=== PATIENT | female | born 1975 | race Caucasian/White ===

== ENCOUNTER 2016-10-21 19:16 | Emergency (ER) | payer OTHER ==
[~2016-10-21 19:16] MED LIST: /PANT40TA PO; ASPI325T5 PO; ATOR1TAB18 PO; EFFI10TA4 PO; FURO20TA2 PO; LISI2.5T PO; METO50TA2 PO; PLAV75TA PO; TRAM50TA2 PO; [UNRECOGNIZED DRUG - CODE] PO
[2016-10-21] MEDS ORDERED: KETOROLAC 30 MG/ML VIAL (J1885) As Ordered ONE (20:45)
--- NOTE | 2016-10-21 21:32 | EDDOCDS ---
Nurse's Notes [facility] Name: Gladis De La Paz Age: 41 yrs Sex: Female : 1975 Arrival Date: 10/21/2016 Time: 19:16 Bed 10 Private MD: Ivett Du C Diagnosis: Strain of muscle and tendon of front wall of thorax Presentation: 10/21 19:22 Presenting complaint: Patient states: reports lifting heavy furniture two days ago, ead reports "chest wall pain" since. denies sob. Adult Sepsis Screening: The patient does not have new or worsening altered mentation. Patient's respiratory rate is less than 22. Systolic blood pressure is greater than 100. Patient has a qSOFA score of 0- Negative Sepsis Screen. Suicide/Homicide risk assessment- the patient denies having any suicidal and/or homicidal ideations and does not present with any other emotional, behavioral or mental health complaints. Status: Patient is not a enrollment services vice president or dependent. Transition of care: patient was not received from another setting of care. 19:22 Method Of Arrival: Walkin/Carried/Asstd ead 19:28 Acuity: RENALDO Level 3 ead Triage Assessment: 19:25 General: Appears in no apparent distress, Behavior is appropriate for age, cooperative. ead Pain: Location: anterior aspect of right upper chest and anterior aspect of left upper chest Pain currently is 4 out of 10 on a pain scale. HIV screening NA for this visit Offered previously. Neurological: No deficits noted. Respiratory: Airway is patent Respiratory effort is even, unlabored, Denies shortness of breath. Derm: Skin is pink, warm & dry. Musculoskeletal: Reports pain in anterior aspect of right upper chest and anterior aspect of left upper chest. 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 aspirin 81 mg Oral TbEC once daily (Last dose: 10/21/2016) 2. Lasix 20 mg Oral tab 1 tab 2 times per day 3. atorvastatin 80 mg oral tab 1 tab nightly 4. metoprolol tartrate 50 mg Oral tab nightly 5. lisinopril 2.5 mg Oral tab 1 tab once daily 6. Zyrtec 10 mg Oral tab 1 tab once daily 7. Protonix 20 mg Oral tab 1 tab 2 times per day 8. potassium chloride 10 mEq Oral cpER 1 cap twice a day 9. Singulair 10 mg oral tab once daily - PMHx: Hypertension; Cardiac arrest; Allergies, Seasonal; Hypercholesterolemia; GERD; - PSHx: Tubal ligation; Cardiac stents; Tonsillectomy; - Social history: Smoking status: Patient uses tobacco products, current every day smoker. No barriers to communication noted, The patient speaks fluent Bengali, Speaks appropriately for age. - Family history: Not pertinent. - : The pt / caregiver states he / she is not on anticoagulants. Home medication list is obtained from the patient, [employer] import data. - Exposure Risk Screening:: None identified. Screenin:12 Screening information is obtained from the patient. Fall risk: No risks identified. cf2 Assistance ADL's: requires no assistance with activities of daily living. Abuse/DV Screen: The patient / caregiver reports he/she is: not in a situation that causes fear, pain or injury. Nutritional screening: No deficits noted. Advance Directives: Further advance directive information is declined. home support is adequate. Assessment: 21:12 General: Appears in no apparent distress, comfortable, Behavior is appropriate for age, cf2 cooperative. Pain: Denies pain. Neurological: No deficits noted. EENT: No deficits noted. Cardiovascular: No deficits noted. Respiratory: No deficits noted. GI: No deficits noted. : No deficits noted. Derm: No deficits noted. Musculoskeletal: No deficits noted. Injury Description: No known injury. Vital Signs: 19:17 BP 128 / 88; Pulse 85; Resp 18 S; Temp 97.3(O); Pulse Ox 100% on R/A; Weight 90.72 kg dd6 (R); Height 5 ft. 1 in. (154.94 cm) (R); Pain 4/10; 20:53 Pulse 80 MON; Resp 17; Temp 97.6(T); Pulse Ox 97% ; mb9 21:26 BP 123 / 76 (auto/); mb9 19:17 Body Mass Index 37.79 (90.72 kg, 154.94 cm) dd6 Vitals: 19:17 Log In Time: October 21, 2016 at 19:15. dd6 ED Course: 19:17 Patient visited by Jason Villatoro PCA. dd6 19:17 Ivett Du is Private Physician. dd6 19:17 Patient moved to Waiting dd6 19:18 Patient moved to Pre RCE dd6 19:23 Triage Initiated ead 19:28 Patient moved to 10 ead 19:34 Kathy Ely,MIHIR is Primary Nurse. cf2 19:34 Patient visited by Kathy Ely RN. cf2 19:35 front desk monitor on. Pulse ox on. NIBP on. ead 19:37 Faisal Nicolas DO is Attending Physician. cs11 19:38 Patient visited by Faisal Nicolas DO. cs11 19:40 Patient visited by Zunilda Menendez, Machinist Helper Marine. jlm 19:40 EKG done. (by ED staff). Reviewed by Faisal Nicolas DO. jlm 19:42 Patient has correct armband on for positive identification. Placed in gown. Bed in low ead position. Call light in reach. Side rails up X 1. Adult w/ patient. 19:45 [facility] Payment Agreement was scanned into [employer] and attached to record. dm19 20:14 Patient visited by Kathy Ely RN. cf2 20:55 Patient visited by Zunilda Menendez, Machinist Helper Marine. jlm 20:55 Assisted to bathroom. jlm 21:12 The patient / caregiver is instructed regarding the plan of care and ED course. cf2 21:12 No IV's were initiated during this patient's visit. No procedures done that require cf2 assistance. 21:13 Ivett Du is Referral Physician. cs11 Administered Medications: 20:53 Drug: ketorolac 60 mg [ketorolac 30 mg/mL (1 mL) injection solution (2 mL)] Route: IM; mb9 Site: left gluteus; Order Results: There are currently no results for this order. Outcome: 20:53 Discharge Assessment: Patient awake, alert and oriented x 3. No cognitive and/or mb9 functional deficits noted. Patient verbalized understanding of disposition instructions. patient administered narcotics - no. The following High Risk Discharge criteria are identified: None. Discharged to home ambulatory. Condition: good Condition: stable Condition: improved. Discharge instructions given to patient, Instructed on discharge instructions, follow up and referral plans. medication usage, Demonstrated understanding of instructions, medications, Pt was receptive of discharge instructions/ teaching. Prescriptions given X 1. No special radiology studies were completed. Property :Personal belongings accompany Pt. 21:13 Discharge ordered by Provider. cs11 21:31 Patient left the ED. mb9 Signatures: Jason Villatoro, KHALIF FIRE PROTECTION DESIGNER dd6 Faisal Nicolas, DO cs11 Kori Flanagan,RN RN Zunilda Justice, Machinist Helper Marine Unit Harjeet Barry RN RN mb9 Kathy Ely RN RN 2 Betsy Mancia dm19 Corrections: (The following items were deleted from the chart) 19:28 19:22 Acuity: RNEALDO Level 4 ead ealuis MTDD
--- NOTE | 2016-10-21 21:32 | EDDOCDS ---
Physician Documentation [facility] Name: Gladis De La Paz Age: 41 yrs Sex: Female : 1975 Arrival Date: 10/21/2016 Time: 19:16 Bed 10 Private MD: Ivett Du C Disposition: 10/21/16 21:13 Discharged to Home/Self Care. Impression: Strain of muscle and tendon of front wall of thorax. - Condition is Stable. - Prescriptions for ketorolac 10 mg Oral Tablet - take 1 tablet by ORAL route 3 times per day As needed MDD- 30mg. Up to 5 days total use.; 15 tablet. - Medication Reconciliation, Local Pharmacy Hours form. - Follow up: Ivett Du; When: Call to arrange an appointment; Reason: Recheck today's complaints. - Problem is new. - Symptoms have improved. Historical: - Allergies: Amoxicillin (difficulty breathing); - Home Meds: 1. aspirin 81 mg Oral TbEC once daily (Last dose: 10/21/2016) 2. Lasix 20 mg Oral tab 1 tab 2 times per day 3. atorvastatin 80 mg oral tab 1 tab nightly 4. metoprolol tartrate 50 mg Oral tab nightly 5. lisinopril 2.5 mg Oral tab 1 tab once daily 6. Zyrtec 10 mg Oral tab 1 tab once daily 7. Protonix 20 mg Oral tab 1 tab 2 times per day 8. potassium chloride 10 mEq Oral cpER 1 cap twice a day 9. Singulair 10 mg oral tab once daily - PMHx: Hypertension; Cardiac arrest; Allergies, Seasonal; Hypercholesterolemia; GERD; - PSHx: Tubal ligation; Cardiac stents; Tonsillectomy; - Social history: Smoking status: Patient uses tobacco products, current every day smoker. No barriers to communication noted, The patient speaks fluent Niuean, Speaks appropriately for age. - Family history: Not pertinent. - : The pt / caregiver states he / she is not on anticoagulants. Home medication list is obtained from the patient, [employer] import data. - Exposure Risk Screening:: None identified. 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 1 in. (154.94 cm) (R); Pain 4/10; 20:53 Pulse 80 MON; Resp 17; Temp 97.6(T); Pulse Ox 97% ; mb9 21:26 BP 123 / 76 (auto/); mb9 19:17 Body Mass Index 37.79 (90.72 kg, 154.94 cm) dd6 MDM: 19:44 Financial registration complete. dm19 19:45 [facility] Payment Agreement was scanned into [employer] and attached to record. dm19 20:23 ketorolac 60 mg IM once ordered. cs11 20:34 ECG WITH READING ER PHYS+CARDIAG ordered. EDMS 20:36 Chest, 1 View Ordered. EDMS Administered Medications: 20:53 Drug: ketorolac 60 mg [ketorolac 30 mg/mL (1 mL) injection solution (2 mL)] Route: IM; mb9 Site: left gluteus; Signatures: Dispatcher [employer] EDMS Faisal Nicolas, DO cs11 Kori Flanagan,RN RN Harjeet Torres RN RN mb9 Kathy Ely,RN RN cf2 Betsy Mancia dm19 The chart was reviewed and I authenticate all verbal orders and agree with the evaluation and treatment provided.Corrections: (The following items were deleted from the chart) 21:06 20:34 Chest, 1 view ordered. EDMS EDMS Attachments: 19:45 [facility] Payment Agreement dm19 MTDD
--- NOTE | 2016-10-21 21:46 | REP ---
Clinical: Chest pain . Comparison: 03/05/2016 . Findings: The mediastinum and cardiac silhouette are stable and within normal limits for portable technique. The lung jones are clear without acute consolidation, effusion, or pneumothorax. Skeletal structures are intact. Impression: Normal portable chest x-ray Signed by [place] Prasad MD 10/21/2016 09:38 P
--- NOTE | 2016-10-22 12:05 | ECGEPIP ---
Stationary ECG Study [facility] - ED Test Date: 2016-10-21 Pat Name: TANO THOMSON Department: Room: - Gender: F Sampler Ovens: neel : 1975 Requested By: MAINOR Islas Order Number: [id number] Reading MD: Kerri Anne Measurements Intervals [place] Rate: 78 P: 19 [place]: 143 QRS: 57 QRSD: 90 T: 52 QT: 368 QTc: 421 Interpretive Statements SINUS RHYTHM ANTERIOR MYOCARDIAL INFARCTION, PROBABLY OLD NSTTW ABNORMALITY Electronically Signed On 10-22-2016 12:05:16 EST by Kerri Anne
--- NOTE | 2016-10-23 22:33 | EDDOCDS ---
Physician Documentation [facility] Name: Gladis De La Paz Age: 41 yrs Sex: Female : 1975 Arrival Date: 10/21/2016 Time: 19:16 Bed 10 Private MD: Ivett Du C Disposition: 10/21/16 21:13 Discharged to Home/Self Care. Impression: Strain of muscle and tendon of front wall of thorax. - Condition is Stable. - Prescriptions for ketorolac 10 mg Oral Tablet - take 1 tablet by ORAL route 3 times per day As needed MDD- 30mg. Up to 5 days total use.; 15 tablet. - Medication Reconciliation, Local Pharmacy Hours form. - Follow up: Ivett Du; When: Call to arrange an appointment; Reason: Recheck today's complaints. - Problem is new. - Symptoms have improved. Historical: - Allergies: Amoxicillin (difficulty breathing); - Home Meds: 1. aspirin 81 mg Oral TbEC once daily (Last dose: 10/21/2016) 2. Lasix 20 mg Oral tab 1 tab 2 times per day 3. atorvastatin 80 mg oral tab 1 tab nightly 4. metoprolol tartrate 50 mg Oral tab nightly 5. lisinopril 2.5 mg Oral tab 1 tab once daily 6. Zyrtec 10 mg Oral tab 1 tab once daily 7. Protonix 20 mg Oral tab 1 tab 2 times per day 8. potassium chloride 10 mEq Oral cpER 1 cap twice a day 9. Singulair 10 mg oral tab once daily - PMHx: Hypertension; Cardiac arrest; Allergies, Seasonal; Hypercholesterolemia; GERD; - PSHx: Tubal ligation; Cardiac stents; Tonsillectomy; - Social history: Smoking status: Patient uses tobacco products, current every day smoker. No barriers to communication noted, The patient speaks fluent Emirati, Speaks appropriately for age. - Family history: Not pertinent. - : The pt / caregiver states he / she is not on anticoagulants. Home medication list is obtained from the patient, [employer] import data. - Exposure Risk Screening:: None identified. 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 1 in. (154.94 cm) (R); Pain 4/10; 20:53 Pulse 80 MON; Resp 17; Temp 97.6(T); Pulse Ox 97% ; mb9 21:26 BP 123 / 76 (auto/); mb9 19:17 Body Mass Index 37.79 (90.72 kg, 154.94 cm) dd6 MDM: 19:44 Financial registration complete. dm19 19:45 [facility] Payment Agreement was scanned into [employer] and attached to record. dm19 20:23 ketorolac 60 mg IM once ordered. cs11 20:34 ECG WITH READING ER PHYS+CARDIAG ordered. EDMS 20:36 Chest, 1 View Ordered. EDMS 10/23 08:15 T-Sheet-- Draft Copy was scanned into [employer] and attached to record. gb Administered Medications: 10/21 20:53 Drug: ketorolac 60 mg [ketorolac 30 mg/mL (1 mL) injection solution (2 mL)] Route: IM; mb9 Site: left gluteus; Signatures: Dispatcher [employer] EDMS Amy Zarco, Reg Reg gb Faisal Nicolas, DO cs11 Kori FlanaganRN RN Harjeet Torres,RN RN mb9 Kathy Ely,RN RN cf2 Betsy Mancia dm19 The chart was reviewed and I authenticate all verbal orders and agree with the evaluation and treatment provided.Corrections: (The following items were deleted from the chart) : 20:34 Chest, 1 view ordered. EDMS EDMS Attachments: 19:45 [facility] Payment Agreement dm19 10/23 08:15 T-Sheet-- Draft Copy gb Chart Complete MTDD
--- NOTE | 2016-10-23 22:33 | EDDOCDS ---
Physician Documentation [facility] Name: Gladis De La Paz Age: 41 yrs Sex: Female : 1975 Arrival Date: 10/21/2016 Time: 19:16 Bed 10 Private MD: Ivett Du C Disposition: 10/21/16 21:13 Discharged to Home/Self Care. Impression: Strain of muscle and tendon of front wall of thorax. - Condition is Stable. - Prescriptions for ketorolac 10 mg Oral Tablet - take 1 tablet by ORAL route 3 times per day As needed MDD- 30mg. Up to 5 days total use.; 15 tablet. - Medication Reconciliation, Local Pharmacy Hours form. - Follow up: Ivett Du; When: Call to arrange an appointment; Reason: Recheck today's complaints. - Problem is new. - Symptoms have improved. Historical: - Allergies: Amoxicillin (difficulty breathing); - Home Meds: 1. aspirin 81 mg Oral TbEC once daily (Last dose: 10/21/2016) 2. Lasix 20 mg Oral tab 1 tab 2 times per day 3. atorvastatin 80 mg oral tab 1 tab nightly 4. metoprolol tartrate 50 mg Oral tab nightly 5. lisinopril 2.5 mg Oral tab 1 tab once daily 6. Zyrtec 10 mg Oral tab 1 tab once daily 7. Protonix 20 mg Oral tab 1 tab 2 times per day 8. potassium chloride 10 mEq Oral cpER 1 cap twice a day 9. Singulair 10 mg oral tab once daily - PMHx: Hypertension; Cardiac arrest; Allergies, Seasonal; Hypercholesterolemia; GERD; - PSHx: Tubal ligation; Cardiac stents; Tonsillectomy; - Social history: Smoking status: Patient uses tobacco products, current every day smoker. No barriers to communication noted, The patient speaks fluent Luxembourger, Speaks appropriately for age. - Family history: Not pertinent. - : The pt / caregiver states he / she is not on anticoagulants. Home medication list is obtained from the patient, [employer] import data. - Exposure Risk Screening:: None identified. 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 1 in. (154.94 cm) (R); Pain 4/10; 20:53 Pulse 80 MON; Resp 17; Temp 97.6(T); Pulse Ox 97% ; mb9 21:26 BP 123 / 76 (auto/); mb9 19:17 Body Mass Index 37.79 (90.72 kg, 154.94 cm) dd6 MDM: 19:44 Financial registration complete. dm19 19:45 [facility] Payment Agreement was scanned into [employer] and attached to record. dm19 20:23 ketorolac 60 mg IM once ordered. cs11 20:34 ECG WITH READING ER PHYS+CARDIAG ordered. EDMS 20:36 Chest, 1 View Ordered. EDMS 10/23 08:15 T-Sheet-- Draft Copy was scanned into [employer] and attached to record. gb Administered Medications: 10/21 20:53 Drug: ketorolac 60 mg [ketorolac 30 mg/mL (1 mL) injection solution (2 mL)] Route: IM; mb9 Site: left gluteus; Signatures: Dispatcher [employer] EDMS Amy Zarco, Reg Reg gb Faisal Nicolas, DO cs11 Kori FlanaganRN RN Harjeet Torres,RN RN mb9 Kathy Ely,RN RN cf2 Betsy Mancia dm19 The chart was reviewed and I authenticate all verbal orders and agree with the evaluation and treatment provided.Corrections: (The following items were deleted from the chart) : 20:34 Chest, 1 view ordered. EDMS EDMS Attachments: 19:45 [facility] Payment Agreement dm19 10/23 08:15 T-Sheet-- Draft Copy gb Chart Complete MTDD
--- NOTE | 2016-10-23 22:33 | EDDOCDS ---
Nurse's Notes [facility] Name: Tano Thomson Age: 41 yrs Sex: Female : 1975 Arrival Date: 10/21/2016 Time: 19:16 Bed 10 Private MD: Ivett Du C Diagnosis: Strain of muscle and tendon of front wall of thorax Presentation: 10/21 19:22 Presenting complaint: Patient states: reports lifting heavy furniture two days ago, ead reports "chest wall pain" since. denies sob. Adult Sepsis Screening: The patient does not have new or worsening altered mentation. Patient's respiratory rate is less than 22. Systolic blood pressure is greater than 100. Patient has a qSOFA score of 0- Negative Sepsis Screen. Suicide/Homicide risk assessment- the patient denies having any suicidal and/or homicidal ideations and does not present with any other emotional, behavioral or mental health complaints. Status: Patient is not a repair servicer or dependent. Transition of care: patient was not received from another setting of care. 19:22 Method Of Arrival: Walkin/Carried/Asstd ead 19:28 Acuity: RENALDO Level 3 ead Triage Assessment: 19:25 General: Appears in no apparent distress, Behavior is appropriate for age, cooperative. ead Pain: Location: anterior aspect of right upper chest and anterior aspect of left upper chest Pain currently is 4 out of 10 on a pain scale. HIV screening NA for this visit Offered previously. Neurological: No deficits noted. Respiratory: Airway is patent Respiratory effort is even, unlabored, Denies shortness of breath. Derm: Skin is pink, warm & dry. Musculoskeletal: Reports pain in anterior aspect of right upper chest and anterior aspect of left upper chest. 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 aspirin 81 mg Oral TbEC once daily (Last dose: 10/21/2016) 2. Lasix 20 mg Oral tab 1 tab 2 times per day 3. atorvastatin 80 mg oral tab 1 tab nightly 4. metoprolol tartrate 50 mg Oral tab nightly 5. lisinopril 2.5 mg Oral tab 1 tab once daily 6. Zyrtec 10 mg Oral tab 1 tab once daily 7. Protonix 20 mg Oral tab 1 tab 2 times per day 8. potassium chloride 10 mEq Oral cpER 1 cap twice a day 9. Singulair 10 mg oral tab once daily - PMHx: Hypertension; Cardiac arrest; Allergies, Seasonal; Hypercholesterolemia; GERD; - PSHx: Tubal ligation; Cardiac stents; Tonsillectomy; - Social history: Smoking status: Patient uses tobacco products, current every day smoker. No barriers to communication noted, The patient speaks fluent Spanish, Speaks appropriately for age. - Family history: Not pertinent. - : The pt / caregiver states he / she is not on anticoagulants. Home medication list is obtained from the patient, [employer] import data. - Exposure Risk Screening:: None identified. Screenin:12 Screening information is obtained from the patient. Fall risk: No risks identified. cf2 Assistance ADL's: requires no assistance with activities of daily living. Abuse/DV Screen: The patient / caregiver reports he/she is: not in a situation that causes fear, pain or injury. Nutritional screening: No deficits noted. Advance Directives: Further advance directive information is declined. home support is adequate. Assessment: 21:12 General: Appears in no apparent distress, comfortable, Behavior is appropriate for age, cf2 cooperative. Pain: Denies pain. Neurological: No deficits noted. EENT: No deficits noted. Cardiovascular: No deficits noted. Respiratory: No deficits noted. GI: No deficits noted. : No deficits noted. Derm: No deficits noted. Musculoskeletal: No deficits noted. Injury Description: No known injury. Vital Signs: 19:17 BP 128 / 88; Pulse 85; Resp 18 S; Temp 97.3(O); Pulse Ox 100% on R/A; Weight 90.72 kg dd6 (R); Height 5 ft. 1 in. (154.94 cm) (R); Pain 4/10; 20:53 Pulse 80 MON; Resp 17; Temp 97.6(T); Pulse Ox 97% ; mb9 21:26 BP 123 / 76 (auto/); mb9 19:17 Body Mass Index 37.79 (90.72 kg, 154.94 cm) dd6 Vitals: 19:17 Log In Time: October 21, 2016 at 19:15. dd6 ED Course: 19:17 Patient visited by Jason Villatoro PCA. dd6 19:17 Ivett Du is Private Physician. dd6 19:17 Patient moved to Waiting dd6 19:18 Patient moved to Pre RCE dd6 19:23 Triage Initiated ead 19:28 Patient moved to 10 ead 19:34 Kathy Ely,MIHIR is Primary Nurse. cf2 19:34 Patient visited by Kathy Ely RN. cf2 19:35 linen checker on. Pulse ox on. NIBP on. ead 19:37 Faisal Nicolas DO is Attending Physician. cs11 19:38 Patient visited by Faisal Nicolas DO. cs11 19:40 Patient visited by Zunilda Menendez, School Speech Language Pathologist. jlm 19:40 EKG done. (by ED staff). Reviewed by Faisal Nicolas DO. jlm 19:42 Patient has correct armband on for positive identification. Placed in gown. Bed in low ead position. Call light in reach. Side rails up X 1. Adult w/ patient. 19:45 [facility] Payment Agreement was scanned into [employer] and attached to record. dm19 20:14 Patient visited by Kathy Ely RN. cf2 20:55 Patient visited by Zunilda Menendez, School Speech Language Pathologist. jlm 20:55 Assisted to bathroom. jlm 21:12 The patient / caregiver is instructed regarding the plan of care and ED course. cf2 21:12 No IV's were initiated during this patient's visit. No procedures done that require cf2 assistance. 21:13 Ivett Du is Referral Physician. cs11 22:32 Chest, 1 View Returned. EDMS 10/22 12:30 EKG-ADULT Returned. EDMS 10/23 08:15 T-Sheet-- Draft Copy was scanned into [employer] and attached to record. gb Administered Medications: 10/21 20:53 Drug: ketorolac 60 mg [ketorolac 30 mg/mL (1 mL) injection solution (2 mL)] Route: IM; mb9 Site: left gluteus; Order Results: Radiology Order: EKG-ADULT Test: EKG-ADULT REASON FOR EXAMINATION: Chest Pain; Stationary ECG Study; [facility] - ED; ; Test Date: 2016-10-21; Pat Name: TANO THOMSON Department:; Room: -; Gender: F Social Media Specialist: neel; : 1975 Requested By: MAINOR Islas; Order Number: [id number] Reading MD: Kerri Anne; Measurements; Intervals [place]; Rate: 78 P: 19; GA: 143 QRS: 57; QRSD: 90 T: 52; QT: 368; QTc: 421; Interpretive Statements; SINUS RHYTHM; ANTERIOR MYOCARDIAL INFARCTION, PROBABLY OLD; NSTTW ABNORMALITY; Electronically Signed On 10-22-2016 12:05:16 EST by Kerri Anne; Radiology Order: Chest, 1 View Test: Chest, 1 View REASON FOR EXAMINATION: Chest Pain; Clinical: Chest pain .; ; Comparison: 03/05/2016 .; ; Findings:; The mediastinum and cardiac silhouette are stable and within normal limits for; portable technique. The lung jones are clear without acute consolidation,; effusion, or pneumothorax. Skeletal structures are intact.; ; Impression:; Normal portable chest x-ray; ; ; Signed by; Los Prasad MD 10/21/2016 09:38 P; Outcome: 20:53 Discharge Assessment: Patient awake, alert and oriented x 3. No cognitive and/or mb9 functional deficits noted. Patient verbalized understanding of disposition instructions. patient administered narcotics - no. The following High Risk Discharge criteria are identified: None. Discharged to home ambulatory. Condition: good Condition: stable Condition: improved. Discharge instructions given to patient, Instructed on discharge instructions, follow up and referral plans. medication usage, Demonstrated understanding of instructions, medications, Pt was receptive of discharge instructions/ teaching. Prescriptions given X 1. No special radiology studies were completed. Property :Personal belongings accompany Pt. 21:13 Discharge ordered by Provider. cs11 21:31 Patient left the ED. mb9 Signatures: Dispatcher [employer] EDMS Amy Zarco, Reg Reg gb Jason Villatoro, STRETCHER OPERATOR STRETCHER OPERATOR dd6 Faisal Nicolas DO DO cs11 Kori Flanagan,RN RN Zunilda Justice, School Speech Language Pathologist Unit Harjeet TomRN RN mb9 Kathy Ely,RN RN cf2 Betsy Mancia dm19 Corrections: (The following items were deleted from the chart) 19:28 19:22 Acuity: RENALDO Level 4 ead ead Chart Complete MTDD
--- NOTE | 2016-10-25 13:47 | EDDOCDS ---
Physician Documentation Name: Gladis De La Paz Age: 41 yrs Sex: Female : 1975 Arrival Date: 10/21/2016 Time: 19:16 Bed 10 Private MD: Ivett Du C Disposition: 10/21/16 21:13 Discharged to Home/Self Care. Impression: Strain of muscle and tendon of front wall of thorax. - Condition is Stable. - Prescriptions for ketorolac 10 mg Oral Tablet - take 1 tablet by ORAL route 3 times per day As needed MDD- 30mg. Up to 5 days total use.; 15 tablet. - Medication Reconciliation, Local Pharmacy Hours form. - Follow up: Ivett Du; When: Call to arrange an appointment; Reason: Recheck today's complaints. - Problem is new. - Symptoms have improved. Historical: - Allergies: Amoxicillin (difficulty breathing); - Home Meds: 1. aspirin 81 mg Oral TbEC once daily (Last dose: 10/21/2016) 2. Lasix 20 mg Oral tab 1 tab 2 times per day 3. atorvastatin 80 mg oral tab 1 tab nightly 4. metoprolol tartrate 50 mg Oral tab nightly 5. lisinopril 2.5 mg Oral tab 1 tab once daily 6. Zyrtec 10 mg Oral tab 1 tab once daily 7. Protonix 20 mg Oral tab 1 tab 2 times per day 8. potassium chloride 10 mEq Oral cpER 1 cap twice a day 9. Singulair 10 mg oral tab once daily - PMHx: Hypertension; Cardiac arrest; Allergies, Seasonal; Hypercholesterolemia; GERD; - PSHx: Tubal ligation; Cardiac stents; Tonsillectomy; - Social history: Smoking status: Patient uses tobacco products, current every day smoker. No barriers to communication noted, The patient speaks fluent Swedish, Speaks appropriately for age. - Family history: Not pertinent. - : The pt / caregiver states he / she is not on anticoagulants. Home medication list is obtained from the patient, [employer] import data. - Exposure Risk Screening:: None identified. 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 1 in. (154.94 cm) (R); Pain 4/10; 20:53 Pulse 80 MON; Resp 17; Temp 97.6(T); Pulse Ox 97% ; mb9 21:26 BP 123 / 76 (auto/); mb9 19:17 Body Mass Index 37.79 (90.72 kg, 154.94 cm) dd6 MDM: 19:44 Financial registration complete. dm19 19:45 [facility] Payment Agreement was scanned into [employer] and attached to record. dm19 20:23 ketorolac 60 mg IM once ordered. cs11 20:34 ECG WITH READING ER PHYS+CARDIAG ordered. EDMS 20:36 Chest, 1 View Ordered. EDMS 10/23 08:15 T-Sheet-- Draft Copy was scanned into [employer] and attached to record. gb Administered Medications: 10/21 20:53 Drug: ketorolac 60 mg [ketorolac 30 mg/mL (1 mL) injection solution (2 mL)] Route: IM; mb9 Site: left gluteus; Signatures: Dispatcher [employer] EDMS Amy Zarco, Reg Reg gb Faisal Nicolas, DO cs11 Kori FlanaganRN RN Harjeet Torres,RN RN mb9 Kathy Ely,RN RN cf2 Betsy Mancia dm19 The chart was reviewed and I authenticate all verbal orders and agree with the evaluation and treatment provided.Corrections: (The following items were deleted from the chart) : 20:34 Chest, 1 view ordered. EDMS EDMS Attachments: 19:45 [facility] Payment Agreement dm19 10/23 08:15 T-Sheet-- Draft Copy gb Chart Complete MTDD
--- NOTE | 2016-10-25 13:47 | EDDOCDS ---
Physician Documentation [facility] Name: Gladis De La Paz Age: 41 yrs Sex: Female : 1975 Arrival Date: 10/21/2016 Time: 19:16 Bed 10 Private MD: Ivett Du C Disposition: 10/21/16 21:13 Discharged to Home/Self Care. Impression: Strain of muscle and tendon of front wall of thorax. - Condition is Stable. - Prescriptions for ketorolac 10 mg Oral Tablet - take 1 tablet by ORAL route 3 times per day As needed MDD- 30mg. Up to 5 days total use.; 15 tablet. - Medication Reconciliation, Local Pharmacy Hours form. - Follow up: Ivett Du; When: Call to arrange an appointment; Reason: Recheck today's complaints. - Problem is new. - Symptoms have improved. Historical: - Allergies: Amoxicillin (difficulty breathing); - Home Meds: 1. aspirin 81 mg Oral TbEC once daily (Last dose: 10/21/2016) 2. Lasix 20 mg Oral tab 1 tab 2 times per day 3. atorvastatin 80 mg oral tab 1 tab nightly 4. metoprolol tartrate 50 mg Oral tab nightly 5. lisinopril 2.5 mg Oral tab 1 tab once daily 6. Zyrtec 10 mg Oral tab 1 tab once daily 7. Protonix 20 mg Oral tab 1 tab 2 times per day 8. potassium chloride 10 mEq Oral cpER 1 cap twice a day 9. Singulair 10 mg oral tab once daily - PMHx: Hypertension; Cardiac arrest; Allergies, Seasonal; Hypercholesterolemia; GERD; - PSHx: Tubal ligation; Cardiac stents; Tonsillectomy; - Social history: Smoking status: Patient uses tobacco products, current every day smoker. No barriers to communication noted, The patient speaks fluent Zambian, Speaks appropriately for age. - Family history: Not pertinent. - : The pt / caregiver states he / she is not on anticoagulants. Home medication list is obtained from the patient, [employer] import data. - Exposure Risk Screening:: None identified. 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 1 in. (154.94 cm) (R); Pain 4/10; 20:53 Pulse 80 MON; Resp 17; Temp 97.6(T); Pulse Ox 97% ; mb9 21:26 BP 123 / 76 (auto/); mb9 19:17 Body Mass Index 37.79 (90.72 kg, 154.94 cm) dd6 MDM: 19:44 Financial registration complete. dm19 19:45 [facility] Payment Agreement was scanned into [employer] and attached to record. dm19 20:23 ketorolac 60 mg IM once ordered. cs11 20:34 ECG WITH READING ER PHYS+CARDIAG ordered. EDMS 20:36 Chest, 1 View Ordered. EDMS 10/23 08:15 T-Sheet-- Draft Copy was scanned into [employer] and attached to record. gb Administered Medications: 10/21 20:53 Drug: ketorolac 60 mg [ketorolac 30 mg/mL (1 mL) injection solution (2 mL)] Route: IM; mb9 Site: left gluteus; Signatures: Dispatcher [employer] EDMS Amy Zarco, Reg Reg gb Faisal Nicolas, DO cs11 Kori FlanaganRN RN Harjeet Torres,RN RN mb9 Kathy Ely,RN RN cf2 Betsy Mancia dm19 The chart was reviewed and I authenticate all verbal orders and agree with the evaluation and treatment provided.Corrections: (The following items were deleted from the chart) : 20:34 Chest, 1 view ordered. EDMS EDMS Attachments: 19:45 [facility] Payment Agreement dm19 10/23 08:15 T-Sheet-- Draft Copy gb Chart Complete MTDD
--- NOTE | 2016-10-25 13:47 | EDDOCDS ---
Nurse's Notes [facility] Name: Tano Thomson Age: 41 yrs Sex: Female : 1975 Arrival Date: 10/21/2016 Time: 19:16 Bed 10 Private MD: Ivett Du C Diagnosis: Strain of muscle and tendon of front wall of thorax Presentation: 10/21 19:22 Presenting complaint: Patient states: reports lifting heavy furniture two days ago, ead reports "chest wall pain" since. denies sob. Adult Sepsis Screening: The patient does not have new or worsening altered mentation. Patient's respiratory rate is less than 22. Systolic blood pressure is greater than 100. Patient has a qSOFA score of 0- Negative Sepsis Screen. Suicide/Homicide risk assessment- the patient denies having any suicidal and/or homicidal ideations and does not present with any other emotional, behavioral or mental health complaints. Status: Patient is not a it service manager or dependent. Transition of care: patient was not received from another setting of care. 19:22 Method Of Arrival: Walkin/Carried/Asstd ead 19:28 Acuity: RENALDO Level 3 ead Triage Assessment: 19:25 General: Appears in no apparent distress, Behavior is appropriate for age, cooperative. ead Pain: Location: anterior aspect of right upper chest and anterior aspect of left upper chest Pain currently is 4 out of 10 on a pain scale. HIV screening NA for this visit Offered previously. Neurological: No deficits noted. Respiratory: Airway is patent Respiratory effort is even, unlabored, Denies shortness of breath. Derm: Skin is pink, warm & dry. Musculoskeletal: Reports pain in anterior aspect of right upper chest and anterior aspect of left upper chest. 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 aspirin 81 mg Oral TbEC once daily (Last dose: 10/21/2016) 2. Lasix 20 mg Oral tab 1 tab 2 times per day 3. atorvastatin 80 mg oral tab 1 tab nightly 4. metoprolol tartrate 50 mg Oral tab nightly 5. lisinopril 2.5 mg Oral tab 1 tab once daily 6. Zyrtec 10 mg Oral tab 1 tab once daily 7. Protonix 20 mg Oral tab 1 tab 2 times per day 8. potassium chloride 10 mEq Oral cpER 1 cap twice a day 9. Singulair 10 mg oral tab once daily - PMHx: Hypertension; Cardiac arrest; Allergies, Seasonal; Hypercholesterolemia; GERD; - PSHx: Tubal ligation; Cardiac stents; Tonsillectomy; - Social history: Smoking status: Patient uses tobacco products, current every day smoker. No barriers to communication noted, The patient speaks fluent Lithuanian, Speaks appropriately for age. - Family history: Not pertinent. - : The pt / caregiver states he / she is not on anticoagulants. Home medication list is obtained from the patient, [employer] import data. - Exposure Risk Screening:: None identified. Screenin:12 Screening information is obtained from the patient. Fall risk: No risks identified. cf2 Assistance ADL's: requires no assistance with activities of daily living. Abuse/DV Screen: The patient / caregiver reports he/she is: not in a situation that causes fear, pain or injury. Nutritional screening: No deficits noted. Advance Directives: Further advance directive information is declined. home support is adequate. Assessment: 21:12 General: Appears in no apparent distress, comfortable, Behavior is appropriate for age, cf2 cooperative. Pain: Denies pain. Neurological: No deficits noted. EENT: No deficits noted. Cardiovascular: No deficits noted. Respiratory: No deficits noted. GI: No deficits noted. : No deficits noted. Derm: No deficits noted. Musculoskeletal: No deficits noted. Injury Description: No known injury. Vital Signs: 19:17 BP 128 / 88; Pulse 85; Resp 18 S; Temp 97.3(O); Pulse Ox 100% on R/A; Weight 90.72 kg dd6 (R); Height 5 ft. 1 in. (154.94 cm) (R); Pain 4/10; 20:53 Pulse 80 MON; Resp 17; Temp 97.6(T); Pulse Ox 97% ; mb9 21:26 BP 123 / 76 (auto/); mb9 19:17 Body Mass Index 37.79 (90.72 kg, 154.94 cm) dd6 Vitals: 19:17 Log In Time: October 21, 2016 at 19:15. dd6 ED Course: 19:17 Patient visited by Jason Villatoro PCA. dd6 19:17 Ivett Du is Private Physician. dd6 19:17 Patient moved to Waiting dd6 19:18 Patient moved to Pre RCE dd6 19:23 Triage Initiated ead 19:28 Patient moved to 10 ead 19:34 Kathy Ely,MIHIR is Primary Nurse. cf2 19:34 Patient visited by Kathy Ely RN. cf2 19:35 air sampling and monitoring on. Pulse ox on. NIBP on. ead 19:37 Faisal Nicolas DO is Attending Physician. cs11 19:38 Patient visited by Faisal Nicolas DO. cs11 19:40 Patient visited by Zunilda Menendez, Carry All Driver. jlm 19:40 EKG done. (by ED staff). Reviewed by Faisal Nicolas DO. jlm 19:42 Patient has correct armband on for positive identification. Placed in gown. Bed in low ead position. Call light in reach. Side rails up X 1. Adult w/ patient. 19:45 [facility] Payment Agreement was scanned into [employer] and attached to record. dm19 20:14 Patient visited by Kathy Ely RN. cf2 20:55 Patient visited by Zunilda Menendez, Carry All Driver. jlm 20:55 Assisted to bathroom. jlm 21:12 The patient / caregiver is instructed regarding the plan of care and ED course. cf2 21:12 No IV's were initiated during this patient's visit. No procedures done that require cf2 assistance. 21:13 Ivett Du is Referral Physician. cs11 22:32 Chest, 1 View Returned. EDMS 10/22 12:30 EKG-ADULT Returned. EDMS 10/23 08:15 T-Sheet-- Draft Copy was scanned into [employer] and attached to record. gb Administered Medications: 10/21 20:53 Drug: ketorolac 60 mg [ketorolac 30 mg/mL (1 mL) injection solution (2 mL)] Route: IM; mb9 Site: left gluteus; Order Results: Radiology Order: EKG-ADULT Test: EKG-ADULT REASON FOR EXAMINATION: Chest Pain; Stationary ECG Study; 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; : 1975 Requested By: MAINOR Islas; Order Number: [id number] Reading MD: Kerri Anne; Measurements; Intervals [place]; Rate: 78 P: 19; MT: 143 QRS: 57; QRSD: 90 T: 52; QT: 368; QTc: 421; Interpretive Statements; SINUS RHYTHM; ANTERIOR MYOCARDIAL INFARCTION, PROBABLY OLD; NSTTW ABNORMALITY; Electronically Signed On 10-22-2016 12:05:16 EST by Kerri Anne; Radiology Order: Chest, 1 View Test: Chest, 1 View REASON FOR EXAMINATION: Chest Pain; Clinical: Chest pain .; ; Comparison: 03/05/2016 .; ; Findings:; The mediastinum and cardiac silhouette are stable and within normal limits for; portable technique. The lung jones are clear without acute consolidation,; effusion, or pneumothorax. Skeletal structures are intact.; ; Impression:; Normal portable chest x-ray; ; ; Signed by; Los Prasad MD 10/21/2016 09:38 P; Outcome: 20:53 Discharge Assessment: Patient awake, alert and oriented x 3. No cognitive and/or mb9 functional deficits noted. Patient verbalized understanding of disposition instructions. patient administered narcotics - no. The following High Risk Discharge criteria are identified: None. Discharged to home ambulatory. Condition: good Condition: stable Condition: improved. Discharge instructions given to patient, Instructed on discharge instructions, follow up and referral plans. medication usage, Demonstrated understanding of instructions, medications, Pt was receptive of discharge instructions/ teaching. Prescriptions given X 1. No special radiology studies were completed. Property :Personal belongings accompany Pt. 21:13 Discharge ordered by Provider. cs11 21:31 Patient left the ED. mb9 Signatures: Dispatcher [employer] EDMS Amy Zarco, Reg Reg gb Jason Villatoro, ACCOUNTANT SYSTEMS ACCOUNTANT SYSTEMS dd6 Faisal Nicolas DO DO cs11 Kori Flanagan,RN RN Zunilda Justice, Carry All Driver Unit Harjeet TomRN RN mb9 Kathy Ely,RN RN cf2 Betsy Mancia dm19 Corrections: (The following items were deleted from the chart) 19:28 19:22 Acuity: RENALDO Level 4 ead ead Chart Complete MTDD
== END 2016-10-21 21:31 | disposition home or self-care (01) ==
LOC: M ED 19:16
DX: S29.011A Strain of muscle and tendon of front wall of thorax, initial encounter (principal); X50.0XXA Overexertion from strenuous movement or load, initial encounter; Y92.89 Other specified places as the place of occurrence of the external cause; Y93.89 Activity, other specified; Y99.8 Other external cause status; I10 Essential (primary) hypertension; E78.5 Hyperlipidemia, unspecified; K21.9 Gastro-esophageal reflux disease without esophagitis; I25.10 Atherosclerotic heart disease of native coronary artery without angina pectoris; Z95.5 Presence of coronary angioplasty implant and graft; J30.2 Other seasonal allergic rhinitis; Z86.74 Personal history of sudden cardiac arrest; Z79.899 Other long term (current) drug therapy; Z79.82 Long term (current) use of aspirin; Z88.1 Allergy status to other antibiotic agents; F17.210 Nicotine dependence, cigarettes, uncomplicated
CPT/HCPCS: 71010; 93005; 96372; 99284; J1885

== ENCOUNTER 2016-11-01 15:57 | Emergency (ER) | payer OTHER ==
[~2016-11-01 15:57] MED LIST changes: -PLAV75TA PO; +PLAV75TA38 PO
--- NOTE | 2016-11-01 17:47 | EDDOCDS ---
Nurse's Notes [facility] Name: Gladis De La Paz Age: 41 yrs Sex: Female : 1975 Arrival Date: 11/01/2016 Time: 15:57 Bed TR8 Private MD: Ivett Du C Diagnosis: Impetigo Presentation: 11/01 16:18 Presenting complaint: Patient states: skin sore at the tip of nose, swelling and rs3 tingling going up to the nasal bridge. Adult Sepsis Screening: The patient does not have new or worsening altered mentation. Patient's respiratory rate is less than 22. Systolic blood pressure is greater than 100. Patient has a qSOFA score of 0- Negative Sepsis Screen. Suicide/Homicide risk assessment- the patient denies having any suicidal and/or homicidal ideations and does not present with any other emotional, behavioral or mental health complaints. 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 Transition of care: patient was not received from another setting of care. 16:18 Acuity: RENALDO Level 5 rs3 16:18 Method Of Arrival: Walkin/Carried/Asstd rs3 Triage Assessment: 16:20 General: Appears in no apparent distress. Pain: Location: nose. 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 aspirin 81 mg Oral TbEC once daily 2. atorvastatin 80 mg oral tab 1 tab nightly 3. Lasix 20 mg Oral tab 1 tab 2 times per day 4. lisinopril 2.5 mg Oral tab 1 tab once daily 5. metoprolol tartrate 50 mg Oral tab nightly 6. potassium chloride 10 mEq Oral cpER 1 cap twice a day 7. Protonix 20 mg Oral tab 1 tab 2 times per day 8. Singulair 10 mg Oral tab once daily 9. Zyrtec 10 mg Oral tab 1 tab once daily - PMHx: Allergies, Seasonal; Cardiac arrest; GERD; Hypercholesterolemia; Hypertension; - PSHx: Tubal ligation; Cardiac stents; Tonsillectomy; - Social history: Smoking status: Patient uses tobacco products, light tobacco smoker. No barriers to communication noted, The patient speaks fluent Lao. - Family history: Not pertinent. - : The pt / caregiver states he / she is not on anticoagulants. Home medication list is obtained from the patient. - Exposure Risk Screening:: None identified. Screenin:45 Screening information is obtained from the patient. Fall risk: No risks identified. jo3 Assistance ADL's: requires no assistance with activities of daily living. Abuse/DV Screen: The patient / caregiver reports he/she is: not in a situation that causes fear, pain or injury. Nutritional screening: No deficits noted. Advance Directives: There is no active DNR order. home support is adequate. Assessment: 17:45 General: Appears in no apparent distress, comfortable, Behavior is appropriate for age, jo3 cooperative. Neurological: No deficits noted. Respiratory: Airway is patent Respiratory effort is even, unlabored. Vital Signs: 16:01 BP 121 / 77; Pulse 80; Resp 18; Temp 97.9; Pulse Ox 99% ; Weight 90.26 kg; Height 5 ft. elp 1 in. (154.94 cm); Pain 0/10; 16:01 Body Mass Index 37.60 (90.26 kg, 154.94 cm) [facility] Vitals: 16:01 Log In Time: November 01, 2016 at 16:00. elp ED Course: 15:59 Patient visited by Vidya Castillo PCA. elp 15:59 Katelynn Doll is Private Physician. elp 15:59 Ivett Du is Private Physician. elp 15:59 Patient moved to Waiting elp 16:00 Patient moved to Pre RCE elp 16:01 Patient visited by Vidya Castillo PCA. elp 16:19 Triage Initiated rs3 17:19 Patient visited by Елена Asher RN. dls 17:19 Patient moved to Triage 3 ar3 17:26 [facility] jk[facility] 17:26 Joseph Diaz MD is Attending Physician. jk8 17:26 Patient visited by Adal Franklin PA-C. jk8 17:43 Patient moved to TR8 ar3 17:45 The patient / caregiver is instructed regarding the plan of care and ED course. jo3 17:45 No IV's were initiated during this patient's visit. No procedures done that require jo3 assistance. Order Results: There are currently no results for this order. Outcome: 17:31 Discharge ordered by Provider. jk8 17:45 Discharge Assessment: Patient awake, alert and oriented x 3. No cognitive and/or jo3 functional deficits noted. Patient verbalized understanding of disposition instructions. patient administered narcotics - no. The following High Risk Discharge criteria are identified: None. Discharged to. Discharged to home. Condition: stable. Discharge instructions given to. No special radiology studies were completed. Property sent home with patient. 17:47 Patient left the ED. jo3 Signatures: Елена Asher, RN RN Loreto Johnson RN RN jo3 Michelle Silverman RN RN rs3 Brianna Mckeon, CONFERENCE SERVICE COORDINATOR CONFERENCE SERVICE COORDINATOR ar3 Vidya Castillo, CONFERENCE SERVICE COORDINATOR CONFERENCE SERVICE COORDINATOR elp Adal Franklin PA-C PA-C jk8 MTDAmina
--- NOTE | 2016-11-01 17:47 | EDDOCDS ---
Physician Documentation [facility] Name: Gladis De La Paz Age: 41 yrs Sex: Female : 1975 Arrival Date: 11/01/2016 Time: 15:57 Bed TR8 Private MD: Ivett Du C Disposition: 11/01/16 17:31 Discharged to Home/Self Care. Impression: Impetigo. - Condition is Stable. - Prescriptions for Bactrim DS 800- 160 mg Oral Tablet - take 2 tablet by ORAL route every 12 hours for 7 days; 28 tablet. Neosporin (sherita- keagan-polym) 3.5mg-400 unit- 5,000 unit/gram Topical Ointment - apply to affected area 1 application by TOPICAL route 2 times per day; 15 gram. - Medication Reconciliation, Local Pharmacy Hours form. - Follow up: Emergency Department; When: As needed; Reason: Worsening of conditions. Follow up: Private Physician; When: 2 - 3 days; Reason: Recheck today's complaints. - Problem is new. - Symptoms are unchanged. Historical: - Allergies: Amoxicillin (difficulty breathing); - Home Meds: 1. aspirin 81 mg Oral TbEC once daily 2. atorvastatin 80 mg oral tab 1 tab nightly 3. Lasix 20 mg Oral tab 1 tab 2 times per day 4. lisinopril 2.5 mg Oral tab 1 tab once daily 5. metoprolol tartrate 50 mg Oral tab nightly 6. potassium chloride 10 mEq Oral cpER 1 cap twice a day 7. Protonix 20 mg Oral tab 1 tab 2 times per day 8. Singulair 10 mg Oral tab once daily 9. Zyrtec 10 mg Oral tab 1 tab once daily - PMHx: Allergies, Seasonal; Cardiac arrest; GERD; Hypercholesterolemia; Hypertension; - PSHx: Tubal ligation; Cardiac stents; Tonsillectomy; - Social history: Smoking status: Patient uses tobacco products, light tobacco smoker. No barriers to communication noted, The patient speaks fluent Frisian. - Family history: Not pertinent. - : The pt / caregiver states he / she is not on anticoagulants. Home medication list is obtained from the patient. - Exposure Risk Screening:: None identified. 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 1 in. (154.94 cm); Pain 0/10; 16:01 Body Mass Index 37.60 (90.26 kg, 154.94 cm) elp Signatures: Loreto Meyers RN RN jo3 Michelle Silverman RN RN rs3 Adal Franklin PA-C PA-C jk8 MTDD
--- NOTE | 2016-11-03 18:48 | EDDOCDS ---
Nurse's Notes [facility] Name: Gladis De La Paz Age: 41 yrs Sex: Female : 1975 Arrival Date: 11/01/2016 Time: 15:57 Bed TR8 Private MD: Ivtet Du C Diagnosis: Impetigo Presentation: 11/01 16:18 Presenting complaint: Patient states: skin sore at the tip of nose, swelling and rs3 tingling going up to the nasal bridge. Adult Sepsis Screening: The patient does not have new or worsening altered mentation. Patient's respiratory rate is less than 22. Systolic blood pressure is greater than 100. Patient has a qSOFA score of 0- Negative Sepsis Screen. Suicide/Homicide risk assessment- the patient denies having any suicidal and/or homicidal ideations and does not present with any other emotional, behavioral or mental health complaints. 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 Transition of care: patient was not received from another setting of care. 16:18 Acuity: RENALDO Level 5 rs3 16:18 Method Of Arrival: Walkin/Carried/Asstd rs3 Triage Assessment: 16:20 General: Appears in no apparent distress. Pain: Location: nose. 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 aspirin 81 mg Oral TbEC once daily 2. atorvastatin 80 mg oral tab 1 tab nightly 3. Lasix 20 mg Oral tab 1 tab 2 times per day 4. lisinopril 2.5 mg Oral tab 1 tab once daily 5. metoprolol tartrate 50 mg Oral tab nightly 6. potassium chloride 10 mEq Oral cpER 1 cap twice a day 7. Protonix 20 mg Oral tab 1 tab 2 times per day 8. Singulair 10 mg Oral tab once daily 9. Zyrtec 10 mg Oral tab 1 tab once daily - PMHx: Allergies, Seasonal; Cardiac arrest; GERD; Hypercholesterolemia; Hypertension; - PSHx: Tubal ligation; Cardiac stents; Tonsillectomy; - Social history: Smoking status: Patient uses tobacco products, light tobacco smoker. No barriers to communication noted, The patient speaks fluent Slovenian. - Family history: Not pertinent. - : The pt / caregiver states he / she is not on anticoagulants. Home medication list is obtained from the patient. - Exposure Risk Screening:: None identified. Screenin:45 Screening information is obtained from the patient. Fall risk: No risks identified. jo3 Assistance ADL's: requires no assistance with activities of daily living. Abuse/DV Screen: The patient / caregiver reports he/she is: not in a situation that causes fear, pain or injury. Nutritional screening: No deficits noted. Advance Directives: There is no active DNR order. home support is adequate. Assessment: 17:45 General: Appears in no apparent distress, comfortable, Behavior is appropriate for age, jo3 cooperative. Neurological: No deficits noted. Respiratory: Airway is patent Respiratory effort is even, unlabored. Vital Signs: 16:01 BP 121 / 77; Pulse 80; Resp 18; Temp 97.9; Pulse Ox 99% ; Weight 90.26 kg; Height 5 ft. elp 1 in. (154.94 cm); Pain 0/10; 16:01 Body Mass Index 37.60 (90.26 kg, 154.94 cm) el Vitals: 16:01 Log In Time: November 01, 2016 at 16:00. elp ED Course: 15:59 Patient visited by Vidya Castillo PCA. elp 15:59 Katelynn Doll is Private Physician. elp 15:59 Ivett Du is Private Physician. elp 15:59 Patient moved to Waiting elp 16:00 Patient moved to Pre RCE elp 16:01 Patient visited by Vidya Castillo PCA. elp 16:19 Triage Initiated rs3 17:19 Patient visited by Елена Asher RN. dls 17:19 Patient moved to Triage 3 ar3 17:26 [facility] jk8 17:26 Joseph Diaz MD is Attending Physician. jk8 17:26 Patient visited by Adal Franklin PA-C. jk8 17:43 Patient moved to TR8 ar3 17:45 The patient / caregiver is instructed regarding the plan of care and ED course. jo3 17:45 No IV's were initiated during this patient's visit. No procedures done that require jo3 assistance. 21:02 T-Sheet-- Draft Copy was scanned into [employer] and attached to record. klr Order Results: There are currently no results for this order. Outcome: 17:31 Discharge ordered by Provider. shola8 17:45 Discharge Assessment: Patient awake, alert and oriented x 3. No cognitive and/or jo3 functional deficits noted. Patient verbalized understanding of disposition instructions. patient administered narcotics - no. The following High Risk Discharge criteria are identified: None. Discharged to. Discharged to home. Condition: stable. Discharge instructions given to. No special radiology studies were completed. Property sent home with patient. 17:47 Patient left the ED. jo3 Signatures: Елена Asher, RN RN dls Loreto MeyersRN RN jo3 Michelle SilvermanRN RN rs3 Brianna Mckeon, GROMMET MAN GROMMET MAN ar3 Vidya Castillo, GROMMET MAN GROMMET MAN elp Adal Franklin PA-C PA-C jkEffie Mtz Chart Complete EMANUEL
--- NOTE | 2016-11-03 18:48 | EDDOCDS ---
Physician Documentation [facility] Name: Gladis De La Paz Age: 41 yrs Sex: Female : 1975 Arrival Date: 11/01/2016 Time: 15:57 Bed TR8 Private MD: Ivett Du C Disposition: 11/01/16 17:31 Discharged to Home/Self Care. Impression: Impetigo. - Condition is Stable. - Prescriptions for Bactrim DS 800- 160 mg Oral Tablet - take 2 tablet by ORAL route every 12 hours for 7 days; 28 tablet. Neosporin (sherita- keagan-polym) 3.5mg-400 unit- 5,000 unit/gram Topical Ointment - apply to affected area 1 application by TOPICAL route 2 times per day; 15 gram. - Medication Reconciliation, Local Pharmacy Hours form. - Follow up: Emergency Department; When: As needed; Reason: Worsening of conditions. Follow up: Private Physician; When: 2 - 3 days; Reason: Recheck today's complaints. - Problem is new. - Symptoms are unchanged. Historical: - Allergies: Amoxicillin (difficulty breathing); - Home Meds: 1. aspirin 81 mg Oral TbEC once daily 2. atorvastatin 80 mg oral tab 1 tab nightly 3. Lasix 20 mg Oral tab 1 tab 2 times per day 4. lisinopril 2.5 mg Oral tab 1 tab once daily 5. metoprolol tartrate 50 mg Oral tab nightly 6. potassium chloride 10 mEq Oral cpER 1 cap twice a day 7. Protonix 20 mg Oral tab 1 tab 2 times per day 8. Singulair 10 mg Oral tab once daily 9. Zyrtec 10 mg Oral tab 1 tab once daily - PMHx: Allergies, Seasonal; Cardiac arrest; GERD; Hypercholesterolemia; Hypertension; - PSHx: Tubal ligation; Cardiac stents; Tonsillectomy; - Social history: Smoking status: Patient uses tobacco products, light tobacco smoker. No barriers to communication noted, The patient speaks fluent Irish. - Family history: Not pertinent. - : The pt / caregiver states he / she is not on anticoagulants. Home medication list is obtained from the patient. - Exposure Risk Screening:: None identified. 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 1 in. (154.94 cm); Pain 0/10; 16:01 Body Mass Index 37.60 (90.26 kg, 154.94 cm) elp MDM: 18:27 Financial registration complete. kf3 21:02 T-Sheet-- Draft Copy was scanned into [employer] and attached to record. klr Signatures: Loreto MeyersRN RN jo3 Lizandro Solorzano, Reg Reg kf3 Michelle SilvermanRN RN rs3 Adal Franklin PA-C PA-C jk8 Redder, Kathie klr The chart was reviewed and I authenticate all verbal orders and agree with the evaluation and treatment provided.Attachments: 21:02 T-Sheet-- Draft Copy klr Chart Complete MTDD
--- NOTE | 2016-11-03 18:48 | EDDOCDS ---
Physician Documentation [facility] Name: Gladis De La Paz Age: 41 yrs Sex: Female : 1975 Arrival Date: 11/01/2016 Time: 15:57 Bed TR8 Private MD: Ivett Du C Disposition: 11/01/16 17:31 Discharged to Home/Self Care. Impression: Impetigo. - Condition is Stable. - Prescriptions for Bactrim DS 800- 160 mg Oral Tablet - take 2 tablet by ORAL route every 12 hours for 7 days; 28 tablet. Neosporin (sherita- keagan-polym) 3.5mg-400 unit- 5,000 unit/gram Topical Ointment - apply to affected area 1 application by TOPICAL route 2 times per day; 15 gram. - Medication Reconciliation, Local Pharmacy Hours form. - Follow up: Emergency Department; When: As needed; Reason: Worsening of conditions. Follow up: Private Physician; When: 2 - 3 days; Reason: Recheck today's complaints. - Problem is new. - Symptoms are unchanged. Historical: - Allergies: Amoxicillin (difficulty breathing); - Home Meds: 1. aspirin 81 mg Oral TbEC once daily 2. atorvastatin 80 mg oral tab 1 tab nightly 3. Lasix 20 mg Oral tab 1 tab 2 times per day 4. lisinopril 2.5 mg Oral tab 1 tab once daily 5. metoprolol tartrate 50 mg Oral tab nightly 6. potassium chloride 10 mEq Oral cpER 1 cap twice a day 7. Protonix 20 mg Oral tab 1 tab 2 times per day 8. Singulair 10 mg Oral tab once daily 9. Zyrtec 10 mg Oral tab 1 tab once daily - PMHx: Allergies, Seasonal; Cardiac arrest; GERD; Hypercholesterolemia; Hypertension; - PSHx: Tubal ligation; Cardiac stents; Tonsillectomy; - Social history: Smoking status: Patient uses tobacco products, light tobacco smoker. No barriers to communication noted, The patient speaks fluent Mongolian. - Family history: Not pertinent. - : The pt / caregiver states he / she is not on anticoagulants. Home medication list is obtained from the patient. - Exposure Risk Screening:: None identified. 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 1 in. (154.94 cm); Pain 0/10; 16:01 Body Mass Index 37.60 (90.26 kg, 154.94 cm) elp MDM: 18:27 Financial registration complete. kf3 21:02 T-Sheet-- Draft Copy was scanned into [employer] and attached to record. klr Signatures: Loreto MeyersRN RN jo3 Lizandro Solorzano, Reg Reg kf3 Michelle SilvermanRN RN rs3 Adal Franklin PA-C PA-C jk8 Redder, Kathie klr The chart was reviewed and I authenticate all verbal orders and agree with the evaluation and treatment provided.Attachments: 21:02 T-Sheet-- Draft Copy klr Chart Complete MTDD
== END 2016-11-01 17:47 | disposition home or self-care (01) ==
LOC: M ED 15:57
DX: L01.00 Impetigo, unspecified (principal); J30.9 Allergic rhinitis, unspecified; Z86.74 Personal history of sudden cardiac arrest; K21.9 Gastro-esophageal reflux disease without esophagitis; E78.00 Pure hypercholesterolemia, unspecified; I10 Essential (primary) hypertension; F17.210 Nicotine dependence, cigarettes, uncomplicated; Z79.82 Long term (current) use of aspirin; Z79.899 Other long term (current) drug therapy; Z88.0 Allergy status to penicillin

== ENCOUNTER 2017-01-16 16:02 | Emergency (ER) | payer OTHER ==
[~2017-01-16] VITALS: Ht 152.4 cm; Wt 90.7 kg
[2017-01-16] MEDS ORDERED: METAL LOCK LOOP XX ONE (16:51)
[2017-01-16] MEDS ORDERED: AVEL400T PO (17:07)
[2017-01-16] MEDS ORDERED: ALBU17IN2 INH (17:07)
[2017-01-16 17:13] VITALS: BP 135/80
== END 2017-01-16 17:24 | disposition home or self-care (01) ==
LOC: M ED 16:45
DX: J20.9 Acute bronchitis, unspecified (principal); I10 Essential (primary) hypertension; I51.9 Heart disease, unspecified; E78.5 Hyperlipidemia, unspecified; Z95.5 Presence of coronary angioplasty implant and graft; F17.200 Nicotine dependence, unspecified, uncomplicated; Z79.82 Long term (current) use of aspirin; Z79.899 Other long term (current) drug therapy; Z88.0 Allergy status to penicillin; Z88.1 Allergy status to other antibiotic agents

== ENCOUNTER → 2017-04-03 | Outpatient (CLI) | payer OTHER ==
[~2017-04-03] MED LIST changes: +ALBU17IN2 INH; +AVEL400T PO; +CLEO300C2 PO; +SING10TA32 PO; +ZYRT10TA2 PO
[2017-04-03 11:08] LABS: BASO % 0.4 % (0.0-1.0); EOS # 0.1 K/mm3 (0.0-0.50); EOS % 0.7 % (0.0-3.0); LYMPH # 2.6 K/mm3 (1.5-4.5); LYMPH % 26.9 % (24.0-44.0); MEAN CORPUSCULAR HEMOGLOBIN 25.1 pg (27.0-33.0); MEAN CORPUSCULAR HGB CONC 31.5 g/dl (32.0-36.5); MEAN CORPUSCULAR VOLUME 79.7 fl (80.0-96.0); MONO # 0.5 K/mm3 (0.0-0.8); MONO % 5.8 % (0.0-5.0); NEUTROPHILS # 5.7 K/mm3 (1.8-7.7); NEUTROPHILS % 63.5 % (36.0-66.0); RED CELL DISTRIBUTION WIDTH 16.9 % (11.5-14.5); WHITE BLOOD COUNT 8.9 K/mm3 (4.0-10.0)
[2017-04-03 11:35] LABS: ALBUMIN 3.8 GM/DL (3.2-5.2); ALBUMIN/GLOBULIN RATIO 1.15 (1.00-1.93); ALKALINE PHOSPHATASE 113 U/L (45-117); ALT/SGPT 30 U/L (12-78); ANION GAP 3 MEQ/L (8-16); AST/SGOT 18 U/L (15-37); BILIRUBIN,TOTAL 0.5 MG/DL (0.2-1.0); BLOOD UREA NITROGEN 12 MG/DL (7-18); CALCIUM LEVEL 8.9 MG/DL (8.5-10.1); CARBON DIOXIDE LEVEL 30 MEQ/L (21-32); CHLORIDE LEVEL 105 MEQ/L (98-107); CHOLESTEROL LEVEL 97 MG/DL (<200); CREATININE FOR GFR 0.82 MG/DL (0.55-1.02); GLOMERULAR FILTRATION RATE > 60.0 (>60); GLUCOSE, FASTING 79 MG/DL (70-105); POTASSIUM SERUM 4.5 MEQ/L (3.5-5.1); SODIUM LEVEL 138 MEQ/L (136-145); TOTAL PROTEIN 7.1 GM/DL (6.4-8.2); TRIGLYCERIDES LEVEL 181 MG/DL (<150)
== END ==
LOC: M LAB 10:32
PROVIDERS: ATTEND Physician Assistant Medical
DX: E78.2 Mixed hyperlipidemia (principal)

== ENCOUNTER 2017-04-05 20:11 | Emergency (ER) | payer OTHER ==
[~2017-04-05] VITALS: Ht 154.9 cm; Wt 91.1 kg
[~2017-04-05 20:11] MED LIST changes: -ATOR1TAB18 PO; +ATOR80TA59 PO; -CLEO300C2 PO; +PLAV1TAB2 PO; -PLAV75TA38 PO; -SING10TA32 PO; -ZYRT10TA2 PO
[2017-04-05] MEDS ORDERED: ZYRT10TA2 PO (20:24)
[2017-04-05] MEDS ORDERED: SING10TA32 PO (20:24)
[2017-04-05] MEDS ORDERED: CLEO300C2 PO (22:52)
[2017-04-05 23:00] VITALS: BP 134/93
[2017-04-05] MEDS ORDERED: ANEXSIA, NORCO 7.5MG/325MG TABLET(HYDROCODONE/APAP) PO ONE (23:00)
[2017-04-05] MEDS ORDERED: CLINDAMYCIN 150 MG CAP PO ONE (23:00)
== END 2017-04-05 23:02 | disposition home or self-care (01) ==
LOC: M ED 21:18
DX: K04.7 Periapical abscess without sinus (principal); K02.9 Dental caries, unspecified; R68.84 Jaw pain; H61.22 Impacted cerumen, left ear; M54.9 Dorsalgia, unspecified; G89.29 Other chronic pain; F41.9 Anxiety disorder, unspecified; I25.2 Old myocardial infarction; F17.200 Nicotine dependence, unspecified, uncomplicated; Z88.0 Allergy status to penicillin; Z88.1 Allergy status to other antibiotic agents; Z79.899 Other long term (current) drug therapy; Z79.82 Long term (current) use of aspirin

== ENCOUNTER → 2017-04-15 | Outpatient (CLI) | payer OTHER ==
[~2017-04-15] MED LIST changes: +CLEO300C2 PO; +SING10TA32 PO; +ZYRT10TA2 PO
[2017-04-15 11:01] LABS: BASO % 0.4 % (0.0-1.0); EOS % 0.8 % (0.0-3.0); LYMPH # 1.6 K/mm3 (1.5-4.5); LYMPH % 21.2 % (24.0-44.0); MEAN CORPUSCULAR HGB CONC 31.5 g/dl (32.0-36.5); MEAN CORPUSCULAR VOLUME 79.5 fl (80.0-96.0); MONO # 0.4 K/mm3 (0.0-0.8); MONO % 5.7 % (0.0-5.0); NEUTROPHILS # 4.8 K/mm3 (1.8-7.7); NEUTROPHILS % 69.7 % (36.0-66.0); RED CELL DISTRIBUTION WIDTH 16.8 % (11.5-14.5); WHITE BLOOD COUNT 6.8 K/mm3 (4.0-10.0)
[2017-04-15 11:02] LABS: FERRITIN 4 NG/ML (8-252)
== END ==
LOC: M LAB 09:36
PROVIDERS: ATTEND Physician Assistant Medical
DX: D64.9 Anemia, unspecified (principal)

== ENCOUNTER → 2017-06-14 | Outpatient (CLI) | payer OTHER ==
[2017-06-14 16:33] LABS: BASO % 0.5 % (0.0-1.0); EOS # 0.1 K/mm3 (0.0-0.50); EOS % 1.1 % (0.0-3.0); LYMPH # 2.2 K/mm3 (1.5-4.5); LYMPH % 25.1 % (24.0-44.0); MEAN CORPUSCULAR HEMOGLOBIN 30.4 pg (27.0-33.0); MEAN CORPUSCULAR HGB CONC 33.7 g/dl (32.0-36.5); MEAN CORPUSCULAR VOLUME 90.1 fl (80.0-96.0); MONO # 0.4 K/mm3 (0.0-0.8); MONO % 4.5 % (0.0-5.0); NEUTROPHILS # 5.4 K/mm3 (1.8-7.7); NEUTROPHILS % 66.8 % (36.0-66.0); RED CELL DISTRIBUTION WIDTH 19.2 % (11.5-14.5); WHITE BLOOD COUNT 8.1 K/mm3 (4.0-10.0)
[2017-06-14 17:00] LABS: ALBUMIN 3.8 GM/DL (3.2-5.2); ALBUMIN/GLOBULIN RATIO 1.15 (1.00-1.93); ALKALINE PHOSPHATASE 120 U/L (45-117); ALT/SGPT 48 U/L (12-78); ANION GAP 7 MEQ/L (8-16); AST/SGOT 29 U/L (15-37); BILIRUBIN,TOTAL 0.4 MG/DL (0.2-1.0); BLOOD UREA NITROGEN 8 MG/DL (7-18); CALCIUM LEVEL 9.1 MG/DL (8.5-10.1); CARBON DIOXIDE LEVEL 29 MEQ/L (21-32); CHLORIDE LEVEL 106 MEQ/L (98-107); CHOLESTEROL LEVEL 90 MG/DL (<200); CREATININE FOR GFR 0.73 MG/DL (0.55-1.02); FERRITIN 12 NG/ML (8-252); GLOMERULAR FILTRATION RATE > 60.0 (>60); GLUCOSE, FASTING 87 MG/DL (70-105); POTASSIUM SERUM 4.4 MEQ/L (3.5-5.1); SODIUM LEVEL 142 MEQ/L (136-145); TOTAL PROTEIN 7.1 GM/DL (6.4-8.2); TRIGLYCERIDES LEVEL 145 MG/DL (<150)
== END ==
LOC: M LAB 15:25
PROVIDERS: ATTEND Physician Assistant Medical
DX: D64.9 Anemia, unspecified (principal); E78.2 Mixed hyperlipidemia

== ENCOUNTER 2017-11-28 20:43 | Emergency (ER) | payer OTHER ==
[2017-11-28] MEDS: DOXYCYCLINE HYCLATE 100 MG TAB PO (22:30)
== END 2017-11-28 22:56 | disposition home or self-care (01) ==
LOC: M ED 20:43
DX: J01.90 Acute sinusitis, unspecified (principal); J20.9 Acute bronchitis, unspecified; I11.0 Hypertensive heart disease with heart failure; I50.9 Heart failure, unspecified; K21.9 Gastro-esophageal reflux disease without esophagitis; M54.9 Dorsalgia, unspecified; G89.29 Other chronic pain; F41.9 Anxiety disorder, unspecified; F17.210 Nicotine dependence, cigarettes, uncomplicated; Z79.899 Other long term (current) drug therapy; Z79.82 Long term (current) use of aspirin; Z88.0 Allergy status to penicillin; Z88.1 Allergy status to other antibiotic agents; Z98.890 Other specified postprocedural states; Z86.69 Personal history of other diseases of the nervous system and sense organs
CPT/HCPCS: 99282

== ENCOUNTER 2017-12-22 13:22 | Emergency (ER) | payer OTHER | END 2017-12-22 17:25 | disposition home or self-care (01) | LOC: M ED 13:22 | DX: M79.644 Pain in right finger(s) (principal); I50.9 Heart failure, unspecified; I10 Essential (primary) hypertension; E78.5 Hyperlipidemia, unspecified; Z95.5 Presence of coronary angioplasty implant and graft; F17.200 Nicotine dependence, unspecified, uncomplicated; Z79.82 Long term (current) use of aspirin; Z79.899 Other long term (current) drug therapy; Z88.0 Allergy status to penicillin; Z88.1 Allergy status to other antibiotic agents | CPT/HCPCS: 73130 ==

== ENCOUNTER → 2018-01-05 | Outpatient (CLI) | payer OTHER ==
[2018-01-05 10:28] LABS: HEMATOCRIT 40.5 % (36.0-47.0); HEMOGLOBIN 13.5 g/dl (12.0-16.0); MEAN CORPUSCULAR HEMOGLOBIN 30.9 pg (27.0-33.0); MEAN CORPUSCULAR HGB CONC 33.3 g/dl (32.0-36.5); MEAN CORPUSCULAR VOLUME 92.7 fl (80.0-96.0); PLATELET COUNT, AUTOMATED 213 10^3/uL (150-450); RED BLOOD COUNT 4.37 10^6/uL (4.00-5.40); RED CELL DISTRIBUTION WIDTH 12.7 % (11.5-14.5); WHITE BLOOD COUNT 8.7 10^3/uL (4.0-10.0)
[2018-01-05 10:35] LABS: ESTIMATED AVERAGE GLUCOSE 123 MG/DL (60-110); HEMOGLOBIN A1c 5.9 %
[2018-01-05 10:47] LABS: TOTAL 25(OH) VITAMIN D 30.1 NG/ML (30.0-100.0)
[2018-01-05 10:48] LABS: ALBUMIN/GLOBULIN RATIO 1.18 (1.00-1.93); ALKALINE PHOSPHATASE 119 U/L (45-117); ALT/SGPT 56 U/L (12-78); ANION GAP 4 MEQ/L (8-16); AST/SGOT 28 U/L (7-37); BILIRUBIN,TOTAL 0.5 MG/DL (0.2-1.0); BLOOD UREA NITROGEN 10 MG/DL (7-18); CALCIUM LEVEL 9.1 MG/DL (8.5-10.1); CARBON DIOXIDE LEVEL 30 MEQ/L (21-32); CHLORIDE LEVEL 107 MEQ/L (98-107); CHOLESTEROL LEVEL 88 MG/DL (<200); CHOLESTEROL RISK RATIO 2.256 (<5); CREATININE FOR GFR 0.74 MG/DL (0.55-1.30); GLOMERULAR FILTRATION RATE > 60.0 (>58); GLUCOSE, FASTING 97 MG/DL (70-100); HDL CHOLESTEROL 39 MG/DL (>40); LDL CHOLESTEROL 2.2 MG/DL (<100); NON-HDL-C 49 MG/DL; POTASSIUM SERUM 4.5 MEQ/L (3.5-5.1); SODIUM LEVEL 141 MEQ/L (136-145); TOTAL PROTEIN 7.4 GM/DL (6.4-8.2); TRIGLYCERIDES LEVEL 234 MG/DL (<150)
== END ==
LOC: M LAB 09:46
DX: D64.9 Anemia, unspecified (principal); R53.83 Other fatigue; E03.9 Hypothyroidism, unspecified
CPT/HCPCS: 84443

== ENCOUNTER → 2022-02-09 | Outpatient (REF) ==
[~2022-02-09] MED LIST changes: -/PANT40TA PO; +DOXY-443 PO; +PROT1TAB2 PO; +VENTAER IN; +ZYRT10CA5 PO; -ZYRT10TA2 PO
== END ==
LOC: M LAB 15:53
PROVIDERS: ATTEND Nurse Practitioner Adult Health
DX: Z00.00 Encounter for general adult medical examination without abnormal findings (principal)

== ENCOUNTER 2023-12-03 09:09 | Emergency (ER) | payer OTHER ==
[~2023-12-03] VITALS: Ht 152.4 cm; Wt 83.6 kg
[2023-12-03 09:09] VITALS: BP 139/84; TEMP 96.8; O2SAT 98
[~2023-12-03 09:09] MED LIST changes: +CLOP75TA99 PO; +MONT-5 PO; -PLAV1TAB2 PO; -SING10TA32 PO
== END 2023-12-03 10:45 | disposition left against medical advice (07) ==
LOC: M ED 09:09
DX: Z53.21 Procedure and treatment not carried out due to patient leaving prior to being seen by health care provider (principal)